=== PATIENT | female | born 1935 | race Caucasian/White ===

== ENCOUNTER 2019-12-27 02:17 | Outpatient (CLI) | payer OTHER, SELFPAY ==
[2019-12-27 18:39] LABS: SARS-CoV-2 RNA PCR Negative
== END 2019-12-27 02:18 | disposition home or self-care (01) ==
LOC: ANHCOVIDDT 02:17
PROVIDERS: PCP Internal Medicine; Visit Provider Specialist
DX: Z01.812 Encounter for preprocedural laboratory examination (principal); Z20.828 Contact with and (suspected) exposure to other viral communicable diseases
CPT/HCPCS: 87635; C9803; U0003

== ENCOUNTER 2019-12-29 05:21 | Day surgery (SDC) | payer OTHER, SELFPAY ==
[2019-12-28 13:27] VITALS: BMI 31.1
[2019-12-29] VITALS (29 sets, daily range): BP systolic 96–183; BP diastolic 51–92; PULSE 65–83; RESP 11–20; TEMP 36.1–36.3; O2SAT 93–100; BMI 31.6
[2019-12-29 08:23] LABS: Basophils Absolute Auto 0.1 K/mm3 (0.0-0.1); Basophils Percent Auto 0.8 % (0.2-1.2); Eosinophils Absolute Auto 0.1 K/mm3 (0-0.3); Eosinophils Percent Auto 1.6 % (0-4.4); Hemoglobin 15.1 g/dL (12.0-15.0); Immature Granulocyte Absolute 0.01 K/mm3 (0.00-0.031); Immature Granulocyte Percent A 0.1 % (0-0.5); Lymphocytes Absolute Auto 2.39 K/mm3 (0.9-3.2); Mean Corpuscular HGB Conc 33.6 g/dl (32-36); Mean Corpuscular Hemoglobin 30.9 pg (26-34); Mean Corpuscular Volume 92.2 fl (80-100); Mean Platelet Volume 11.8 fl (7.4-10.4); Monocytes Absolute Auto 0.5 K/mm3 (0.1-0.6); Monocytes Percent Auto 6.2 % (2.6-8.5); Neutrophils Absolute Auto 4.4 K/mm3 (1.3-6.7); Neutrophils Percent Auto 59.3 % (45.5-73.1); Platelet Count Result 264 k/mm3 (150-375); Red Blood Count 4.88 M/mm3 (4.2-5.4); Red Cell Distribution Width 13.7 % (11.5-14.5); White Blood Count 7.5 K/mm3 (4.5-10.0)
[2019-12-29 08:32] LABS: INR 0.9; Prothrombin Time 12.3 Seconds (11.1-14.7)
[2019-12-29 08:34] LABS: Anion Gap 5 mmol/L (8-16); Blood Urea Nitrogen 16 mg/dL (7-17); Calcium 9.5 mg/dL (8.4-10.2); Carbon Dioxide 29 mmol/L (22-30); Chloride 106 mmol/L (98-107); Estimated CRCL calculation 47 ml/min; Estimated Glomerular Filt Rate > 60; Glucose 95 mg/dL (65-105); Potassium 3.9 mmol/L (3.4-5.0); Sodium 140 mmol/L (137-145)
--- NOTE | 2019-12-29 09:46 | WPDMODSED ---
Moderate Sedation Note-Pt Data Patient Data Diagnosis: Symptoms of atypical chest pain Coronary disease with previous stenting of the LAD in 2014 Present Complaint: No complaints this morning patient here for outpatient angiography Procedure to be performed/Plan: Left heart catheterization Allergies Allergy/AdvReac Type Severity Reaction Status Date / Time No Known Allergies Allergy Verified 12/22/19 14:14 Home Medications Medication Instructions Recorded Confirmed Type clopidogrel 75 mg tablet 75 mg PO DAILY 02/21/19 12/28/19 History denosumab 60 mg/mL subcutaneous 60 mg SUB-Q [id number] 02/21/19 12/28/19 History syringe cholecalciferol (vitamin D3) 2,000 unit PO DAILY 03/02/19 12/28/19 History [Vitamin D3] pantoprazole 40 mg tablet,delayed 40 mg PO DAILY #90 tablet 08/29/19 12/28/19 Rx release lisinopril 40 mg PO DAILY 12/28/19 12/28/19 History metoprolol succinate 25 mg PO DAILY 12/28/19 12/28/19 History Current Medications: Active Medications Sodium Chloride (Normal Saline Iv) 500 mls @ 100 mls/hr IV CONT .Q5H NADIR Sedation/Anesthesia: No previous sedation/anesthesia problems (including family history). [facility] Past Medical History Medical History (Updated 12/22/19 @ 14:53 by ANGELICA Bai) Arthritis CAD (coronary artery disease) Cancer of kidney Carpal tunnel syndrome Cataracts, bilateral Diverticulitis Diverticulosis Gastroesophageal reflux disease Heart attack Hiatal hernia History of blood transfusion HTN (hypertension) Hyperlipidemia Post-menopausal Renal cell carcinoma Screening for breast cancer Seborrheic keratoses Shingles Umbilical hernia Surgical History Surgical History History of bladder surgery History of cardiac catheterization History of carpal tunnel release History of cataract removal with insertion of prosthetic lens History of cholecystectomy History of colonoscopy History of coronary artery stent placement History of hysterectomy History of umbilical hernia repair Status post dilation and curettage Social History Social History Smoking status: Never smoker Second hand tobacco smoke exposure: No Alcohol intake: current Drinks per week: 1 Substance use: never Living arrangements: with family Gender identity (if verbalized by the patient): Female Spiritual care concerns: No Agree to blood products: No Mod Sed Physical Exam Physical Exam Pre Procedural Exam: Normal: Appearance, Neck, Throat, Airway, Lungs, Heart Size, Heart Rate, Heart Rhythm, Neuro Exam and Extremities Hours since solid foods: 12 Hours since liquid intake: 12 Internal Medicine - PN: Obj Da Vital Signs Vital Signs: Vital Signs - 24 hr 12/29/19 08:20 Temperature 36.2 C L Pulse Rate 68 Respiratory Rate 13 Blood Pressure 183/92 H Pulse Oximetry 100 Meds/Results Medications: Active Medications Generic Name Dose Route Start Last Admin Trade Name Gildardoq PRN Reason Stop Dose Admin Sodium Chloride 500 mls @ 100 mls/hr 12/29/19 05:55 Normal Saline Iv IV CONT .Q5H NADIR Labs CBC & Chem 7: 12/29/19 08:04 12/29/19 08:04 Labs: Laboratory Results - last 24 hr 12/29/19 12/29/19 12/29/19 08:04 08:04 08:04 WBC 7.5 RBC 4.88 Hgb 15.1 H Hct 45.0 MCV 92.2 MCH 30.9 MCHC 33.6 RDW 13.7 Plt Count 264 MPV 11.8 H Immature Gran % (Auto) 0.1 Neut % (Auto) 59.3 Lymph % (Auto) 32.0 [place] % (Auto) 6.2 Eos % (Auto) 1.6 Baso % (Auto) 0.8 Lymph # (Auto) 2.39 [place] # (Auto) 0.5 Eos # (Auto) 0.1 Baso # (Auto) 0.1 Abs Immat Gran (auto) 0.01 Absolute Neuts (auto) 4.4 Absolute Nucleated RBC 0.0 Nucleated RBC % 0.0 PT 12.3 INR 0.9 Sodium 140 Potassium 3.9 Chloride 106 Carbon Dioxide 29 Anion Gap 5 L BUN 16 Creatinin
--- NOTE | 2019-12-29 10:38 | WPDCARDPROC ---
Cardiac Cath Procedure Note Date of procedure:: 12/29/19 Performing physician:: Dino Suggs MD Indication:: chest pain syndrome with both atypical and typical features of angina history of coronary artery disease with previous LAD stent 5 years ago abnormal nuclear stress test Brief clinical history:: 84-year-old patient with a known history of coronary disease who underwent stenting of the LAD in 2015. She has of variety of symptoms which are mostly atypical of myocardial ischemia she does some exertional chest pain component as well. A nuclear stress test was done as an outpatient which was modestly abnormal suggesting ischemia in the base of the anterior wall. Follow-up angiogram was recommended for this reason Procedure Procedure performed:: left heart catheterization with left ventriculography and coronary angiography percutaneous revascularization of the circumflex Sedation/Medication given:: fentanyl 50 mg Versed 2 mg case start time 9:57 a.m. case end time 10:32 a.m. sedation provided by Kerry Leo RN, trained observer Access site:: right femoral Estimated blood loss:: 15-20 cc Procedure note:: patient was brought to the cardiac catheterization lab in the postabsorptive state the right femoral triangle was prepared and draped in the usual sterile fashion. Anesthesia was provided with 1% lidocaine infiltrated locally. Using the modified Seldinger technique the femoral artery was punctured and a 5 Palestinian vascular sheath was placed. After this left heart catheterization was carried out a 5 Palestinian angled pigtail catheter was used to document left-sided hemodynamics and to injected LV g in the are AO projection. After this I used a 5 Palestinian FL4 catheter to engage inject the left coronary artery and then a 5 Palestinian JR4 catheter to engage inject the right coronary artery. Cineangiograms were then reviewed and after this PCI of the mid circumflex was recommended and carried out as detailed below. prior to PCI the 5 Palestinian sheath was changed over a guidewire for a 6 Palestinian sheath. She was systemically anticoagulated with Angiomax for the intervention she was taking clopidogrel chronically but not aspirin she received 325 mg of aspirin orally prior to PCI. Following PCI the sheath was sutured into position he was taken to the holding area for recovery and sheath removal. The patient was significantly hypertensive during the case cardiac catheterization procedure she received intravenous labetalol 20 mg x 2 doses as well as 10 mg of hydralazine for treatment of this. He left the catheterization lab in stable condition with no evidence of a groin hematoma. Findings:: Hemodynamics: Central aortic pressure is 208 over 84 left ventricle 208/1 end-diastolic pressure 16. There was significant gradient on pullback across the aortic valve. Left ventricle the LV is of normal size all segments contract appropriately the global ejection fraction of visually estimated to be 60% the left main coronary artery is widely patent the left anterior descending is a moderate caliber artery extending down to the apex. There is visible stent material in the proximal segment of the LAD which remains nicely patent. There is modest atherosclerotic irregularities in the LAD proximal to this representing no more than about 20% stenosis. The circumflex is a [id number] caliber artery giving rise to 2 significant marginal branches in the mid circumflex between the 2 branches there is a 80% disease there is VERONIKA 3 flow in the vessel. The right coronary artery is moderate caliber and dominant to the posterior circulation the right coronary artery is angiographically free of significant disease the left coronary artery was engaged with a 6 Palestinian CLS 3.5 guiding catheter 0.014 BMW coronary wire was used to wire the circumflex. The lesion was pre-dilated with a 2.5 x 20 mm emerge PTCA balloon and then stented using a 3.0 x 18 mm Ors
--- NOTE | 2019-12-29 11:10 | ECG_ITS ---
Measurements Intervals [place] Rate: 75 P: 40 WA: 258 QRS: -13 QRSD: 92 T: 20 QT: 404 QTc: 453 Interpretive Statements SINUS RHYTHM WITH FIRST DEGREE AV BLOCK INCOMPLETE RIGHT BUNDLE BRANCH BLOCK BASELINE ARTIFACT- I, II, AVR, AVL, AVF ABNORMAL ECG Electronically Signed On 12-29-2019 20:07:06 CDT by Farhan Laureano D.O.
[2019-12-29] MEDS: MORPHINE SULFATE (*CRX) 2 MG/ML INJ IV PUSH (11:32)
--- NOTE | 2019-12-29 11:39 | SUR.PHASEII ---
1115-pt endorses 10/12 left chest pain. MD informed and orders received and carried out. Pt's pain has not yet abated. Will continue to monitor.
--- NOTE | 2019-12-29 12:13 | SUR.PHASEII ---
1212-MD informed and pt's continuing pain. Orders received and carried out. Will continue to monitor.
[2019-12-29] MEDS: NITROGLYCERIN OINTMENT 1 INCH DOSE TRANSDERM (12:22)
--- NOTE | 2019-12-29 16:15 | ADMGEN ---
This patient, Debbie Miller, was admitted to [facility]. Patient/family oriented to hospital policies and general routines including ID bracelet, bed and alarms, visiting hours, pain management, procedures, bathroom and other care routines, personal items, smoking policy, room service/diet, and visiting hours. Valuables list has been completed. Information on how to activate the Rapid Response Team has been discussed. Patient/Family are encouraged to report perceived risks to care and to ask questions if they do not understand what they are told or what they should do.
--- NOTE | 2019-12-29 17:45 | PC.NURSE ---
This patient, Debbie Miller, was received from [[facility]] on 12/29/19 at 1745. REPORT RECEIVED FROM ISA BLANCO. Personal belongings list checked and signed. Patient/family oriented to unit policies and routines
[2019-12-29] MEDS: SODIUM CHLORIDE 0.9% IV 1,000 ML 125 ML IV CONT (19:34)
[2019-12-30] VITALS (10 sets, daily range): BP systolic 124–130; BP diastolic 61–67; PULSE 57–81; RESP 16; TEMP 35.9–36.4; O2SAT 96–97
[2019-12-30] MEDS: ACETAMINOPHEN 500 MG TABLET 1000 MG PO (03:25)
--- NOTE | 2019-12-30 05:11 | ECG_ITS ---
Measurements Intervals [place] Rate: 63 P: -21 TX: 225 QRS: -26 QRSD: 93 T: -29 QT: 397 QTc: 408 Interpretive Statements SINUS RHYTHM WITH FIRST DEGREE AV BLOCK INCOMPLETE RIGHT BUNDLE BRANCH BLOCK DELAYED PRECORDIAL R/S TRANSITION BORDERLINE T WAVE ABNORMALITY- INFERIOR LEADS BASELINE ARTIFACT- V3 ABNORMAL ECG Electronically Signed On 12-30-2019 8:34:08 CDT by Farhan Laureano D.O.
[2019-12-30] MEDS: PANTOPRAZOLE 40 MG TABLET PO (08:59)
[2019-12-30] MEDS: CLOPIDOGREL BISULFATE 75 MG TABLET PO (08:59)
[2019-12-30] MEDS: lisinopriL 20 MG TABLET 40 MG PO (08:59)
[2019-12-30] MEDS: METOPROLOL SUCCINATE EXT REL 25 MG TABCR PO (08:59)
[2019-12-30] MEDS: CHOLECALCIFEROL 1,000 UNITS TABLET 2000 UNITS PO (09:02)
[2019-12-30] MEDS: ASPIRIN 81 MG CHEWABLE TABLET PO (09:02)
--- NOTE | 2019-12-30 10:59 | PM.DS ---
DS: Admitting Diagnosis Admitting Diagnosis Admitting Diagnosis: Chest pain, Abnormal Stress Test DS: Discharge Diagnosis Discharge Diagnosis (1) Coronary artery disease involving [place] coronary artery of [place] heart: Qualifiers: Associated angina: angina presence unspecified Qualified Code(s): I25.10 - Atherosclerotic heart disease of [place] coronary artery without angina pectoris Code(s): I25.10 - Atherosclerotic heart disease of [place] coronary artery without angina pectoris Status: Acute DS: Summary Time Spent with Patient Time attestation: Patient has been complaining of exertional chest discomfort and tightness and radiates ot her jaw and had stress test that was abnormal and referred for [facility] that showed severe disease in LCX and had PCI with BRETIN to LCX yesterday Osario 3.0 * 18 mm, she had patent stents in LAD. Cath done though right GENERAL NEUROLOGIST. overnight mild jaw pain with no chest pain associated with headache that resolved spontaneously,. ambulant with no pain in chest or groin, asymptomatic and feels good. Total time spent providing and/or coordinating discharge services: 35 min Exam Const: General: comfortable and no acute distress Limitations: no limitations Neck: Neck: supple and no JVD Carotids: no bruits Resp: Effort & Inspection: normal respiratory effort Auscultation: clear to auscultation bilaterally Cardio: Rate: regular rate and tachycardic Rhythm: regular rhythm Heart sounds: no murmurs Extrem: General: normal to inspection and no edema Other: Access site with no hematoma Psych: Mental Status: mental status grossly normal DS: Data Data Completed and Pending Completed studies during hospitalization: [facility] that showed 80% stenosis in LCX s/p PCi with BERTIN Labs on day of discharge: Normal kidney function and CBC Discharge Plan Discharge Patient Disposition: Home, Self-Care Discharge Instructions: ACTIVITY: No driving until Wednesday, January 01, 2020. No lifting, pushing or pulling more than 10 pounds for 1 week. No strenuous exercise or activity for 1 week. May shower but no tub baths or swimming pool for 1 week. Avoid commercial hot tubs. They are too hot. DO NOT STOP YOUR MEDICATIONS! ONLY YOUR GAS BRAZER CAN STOP THE FOLLOWING MEDICATIONS: Aspirin Clopidogrel Rosuvastatin Lisinopril Metoprolol succinate PLEASE CALL THE OFFICE IF THESE MEDICATIONS NEED TO BE STOPPED Keep your stent card in your wallet at all times Read food labels for high levels of sodium, no added salt, avoid fried foods, eat more fruits and vegetables. Stay hydrated. If you have chest pain unrelieved by rest call 911 immediately FOLLOW-UP: Follow up with [facility] ([facility]) office at [facility] [address] with Magali Liriano NP on January 12, 2020 at 1:00 p.m. Please arrive by 12:45 p.m. for your appointment. Bring photo ID, insurance card(s) and current medication list. WOUND CARE: May remove Band aid tomorrow and leave site open to air. Observe for redness, swelling, drainage or bleeding. Wash gently and pat dry when showering. Patient Instructions: Metoprolol (By mouth), Lisinopril (By mouth), Aspirin (By mouth), Clopidogrel (By mouth), Pantoprazole (By mouth), Coronary Artery Disease (DC), Coronary Angioplasty (DC) Stand Alone Forms: General Discharge Instructions Discharge Medications: New aspirin [Children's Aspirin] 81 mg Tablet,Chewable 81 mg PO DAILY@0800 Qty: 30 RF: 11 rosuvastatin 5 mg tablet 5 mg PO DAILY Qty: 30 RF: 3 Continued clopidogrel 75 mg tablet 75 mg PO DAILY RF: 0 Prolia 60 mg/mL syringe 60 mg SUB-Q [id number] RF: 0 pantoprazole 40 mg tablet,delayed release (DR/EC) 40 mg PO DAILY Qty: 90 RF: 1 cholecalciferol (vitamin D3) [Vitamin D3] 2,000 unit Tablet 2,000 unit PO DAILY RF: 0 metoprolol succinate 25 mg
== END 2019-12-30 12:40 | disposition home or self-care (01) ==
LOC: ANHCATHLAB 07:45 → ANHCPC 16:14 → ANHIMU 02-26 14:26
PROVIDERS: PCP Internal Medicine; Visit Provider Specialist
PROC: 4A023N7 Measurement of Cardiac Sampling and Pressure, Left Heart, Percutaneous Approach (ICD-10-PCS; CPT 93452; principal; 2019-12-29 09:00)
PROC: (CPT 92928; 2019-12-29 09:00)
DX: I25.10 Atherosclerotic heart disease of native coronary artery without angina pectoris (principal); R07.9 Chest pain, unspecified; R94.39 Abnormal result of other cardiovascular function study; Z95.5 Presence of coronary angioplasty implant and graft; I10 Essential (primary) hypertension; Z79.02 Long term (current) use of antithrombotics/antiplatelets; K21.9 Gastro-esophageal reflux disease without esophagitis; I25.2 Old myocardial infarction; E78.5 Hyperlipidemia, unspecified; Z85.528 Personal history of other malignant neoplasm of kidney
CPT/HCPCS: 36415; 80048; 85025; 85610; 93005; 93458; A9270; C1725; C1769; C1874; C1887; C1894; C9600; J0360; J0461; J0583; J1644; J2250; J2270; J3010; J7030; J7040

== ENCOUNTER 2020-02-01 08:12 | Outpatient (CLI) | payer OTHER, SELFPAY ==
--- NOTE | ~2020-02-01 | MM_ITS ---
EXAMINATION: MM screening marky BI w steven HISTORY: Screening mammogram TECHNIQUE: Craniocaudal and mediolateral oblique 3-D tomosynthesis images were obtained and synthetic 2-D images were generated. CAD analysis was submitted and interpreted. COMPARISON: 07/11/2018, 07/01/2016, 01/11/2013 BREAST PARENCHYMAL COMPOSITION: There are scattered areas of fibroglandular density. FINDINGS: Scattered benign-appearing calcifications are present. There is no evidence of suspicious m ass, calcification, or architectural distortion to suggest malignancy in either breast. There has bee n no suspicious interval change. IMPRESSION: 1. No mammographic evidence of malignancy. 2. Recommend routine screening mammography while the patient remains in good health. BI-RADS Category 2: Benign finding(s). Reviewed, dictated and finalized at location A. IMPRESSION: 1. No mammographic evidence of malignancy. 2. Recommend routine screening mammography while the patient remains in good he alth. BI-RADS Category 2: Benign finding(s).
== END 2020-02-01 08:13 | disposition home or self-care (01) ==
PROVIDERS: PCP Internal Medicine; Visit Provider Nurse Practitioner
DX: Z12.31 Encounter for screening mammogram for malignant neoplasm of breast (principal)
CPT/HCPCS: 77063; 77067

== ENCOUNTER 2020-03-08 07:05 | Outpatient (NON) | payer OTHER, SELFPAY ==
[2020-03-08 19:11] LABS: SARS-CoV-2 RNA PCR Positive
== END 2020-03-08 07:06 ==
LOC: ANHCOVIDDT 07:14
PROVIDERS: PCP Internal Medicine; Visit Provider Nurse Practitioner
DX: U07.1 COVID-19 (principal)
CPT/HCPCS: 87635; C9803; U0003

== ENCOUNTER 2020-09-23 20:05 | Emergency (ER) | payer OTHER, SELFPAY ==
--- NOTE | ~2020-09-23 | XR_ITS ---
EXAMINATION: XR knee RT min 4V DATE: 09/23/2020 21:18 INDICATION: Right knee pain. TECHNIQUE: 4 views of right knee were obtained. COMPARISON: Right knee radiographs 12/17/2016 FINDINGS: Bone alignment is normal. No fracture. There is mild tricompartmental osteoarthritis. There is a small knee joint effusion. IMPRESSION: 1. Mild right knee osteoarthritis. 2. Small right knee joint effusion. Reviewed, dictated and finalized at location A.
--- NOTE | ~2020-09-23 | XR_ITS ---
EXAMINATION: XR knee LT min 4V DATE: 09/23/2020 21:17 INDICATION: Left knee pain. TECHNIQUE: 4 views of left knee were obtained. COMPARISON: None. FINDINGS: Bone alignment is normal. No fracture. There is moderate osteoarthritis of patellofemoral c ompartment and mild osteoarthritis of medial and lateral compartments. There is a small knee joint ef fusion. IMPRESSION: 1. Moderate left knee osteoarthritis. 2. Small left knee joint effusion. Reviewed, dictated and finalized at location A.
[2020-09-23 20:19] VITALS: BP 184/69; PULSE 64; RESP 18; TEMP 36.7; O2SAT 100
--- NOTE | 2020-09-23 22:03 | ED.LOWEXIN ---
HPI - Extremity Injury (Lower) General Chief Complaint: Extremity Injury, Lower Stated Complaint: preet knee pain, L>R Time Seen by Provider: 09/23/20 21:03 Source: patient Mode of arrival: ambulatory Limitations: no limitations History of Present Illness HPI Narrative: This is a 85-year-old female that presents to the emergency department for left knee pain x2 days. No certain injury or trauma. Pain is worse with weightbearing and relieved with rest. Reports decreased range of motion due to pain. Also reports some pain in the right knee. Denies fever, erythema, edema, or numbness. Related Data Home Medications Medication Instructions Recorded Confirmed clopidogrel 75 mg tablet 75 mg PO DAILY 02/21/19 04/24/20 cholecalciferol (vitamin D3) 2,000 unit PO DAILY 03/02/19 04/24/20 [Vitamin D3] metoprolol succinate 25 mg PO DAILY 12/28/19 04/24/20 famotidine 20 mg tablet 20 mg PO DAILY 02/13/20 04/24/20 Allergies Allergy/AdvReac Type Severity Reaction Status Date / Time Anesthesia AdvReac Mild Nausea Uncoded 04/24/20 10:04 Review of Systems Review of Systems: Narrative: CONSTITUTIONAL: Denies fever SKIN: Denies rash MUSCULOSKELETAL: Reports joint pain, and myalgia. NEUROLOGIC: Denies numbness, or weakness. All systems reviewed & are unremarkable except as noted in HPI and below PMFSH Past Medical History Medical History Arthritis CAD (coronary artery disease) Cancer of kidney Carpal tunnel syndrome Cataracts, bilateral Diverticulitis Diverticulosis Gastroesophageal reflux disease Heart attack Hiatal hernia History of blood transfusion HTN (hypertension) Hyperlipidemia Pharyngitis Post-menopausal Postmenopausal Renal cell carcinoma Screening for breast cancer Seborrheic keratoses Shingles Umbilical hernia Surgical History Surgical History History of bladder surgery History of cardiac catheterization History of carpal tunnel release History of cataract removal with insertion of prosthetic lens History of cholecystectomy History of colonoscopy History of coronary artery stent placement History of hysterectomy History of umbilical hernia repair Status post dilation and curettage Family History Family History Sibling Patient's brother is in good health Cerebrovascular accident Father Family history of cardiovascular disease Cerebrovascular accident Mother Congestive heart failure Social History Social History Smoking status: Never smoker Second hand tobacco smoke exposure: No Alcohol intake: current Drinks per week: 1 Substance use: never Substance use type: does not use Gender identity (if verbalized by the patient): Female Spiritual care concerns: No Agree to blood products: No Exam Narrative: Exam Narrative: GENERAL: Well-appearing, well-nourished, and in no acute distress. HEAD: Normocephalic, atraumatic. EYES: EOMI. EXTREMITIES: Normal range of motion in the right knee. Decreased active ROM in the left knee due to pain. No edema, erythema or obvious deformity. Normal DP pulses. Normal sensation SKIN: Warm, dry, no rash. NEURO: No focal deficits. Alert and oriented x3. PSYCH: Normal mood and affect Course Vital Signs Vital signs: Vital Signs Temperature 98.1 F 09/23/20 20:19 Pulse Rate 64 09/23/20 20:19 Respiratory Rate 18 09/23/20 20:19 Blood Pressure 184/69 H 09/23/20 20:19 Pulse Oximetry 100 09/23/20 20:19 Temperature 98.1 F 09/23/20 20:19 Pulse Rate 64 09/23/20 20:19 Respiratory Rate 18 09/23/20 20:19 Blood Pressure 184/69 H 09/23/20 20:19 Pulse Oximetry 100 09/23/20 20:19 MDM - Extremity Injury (Lower) MDM Narrative Medical decision making narrative: Patient presents the emergency department f
[2020-09-23 22:42] VITALS: BP 174/72; PULSE 73; RESP 20; O2SAT 97
== END 2020-09-23 22:45 | disposition home or self-care (01) ==
PROVIDERS: Emergency Provider Emergency Medicine; PCP Internal Medicine
DX: M17.0 Bilateral primary osteoarthritis of knee (principal); I25.10 Atherosclerotic heart disease of native coronary artery without angina pectoris; Z85.528 Personal history of other malignant neoplasm of kidney; K21.9 Gastro-esophageal reflux disease without esophagitis; I25.2 Old myocardial infarction; I10 Essential (primary) hypertension; E78.5 Hyperlipidemia, unspecified; Z95.5 Presence of coronary angioplasty implant and graft; Z98.49 Cataract extraction status, unspecified eye; Z96.1 Presence of intraocular lens
CPT/HCPCS: 73564; 99284

== ENCOUNTER → 2021-04-16 10:39 | Outpatient (CLI) | payer OTHER, SELFPAY ==
--- NOTE | ~2021-04-16 | XR_ITS ---
EXAMINATION: XR hip LT 2V w AP pelvis EXAM DATE: 04/16/2021 11:10 INDICATION: R10.32 - Left lower quadrant pain . TECHNIQUE: Left hip frontal, 'frog leg' projections for interpretation. Frontal projection pelvis. There is no prior study for comparison. FINDINGS: Smooth left hip femoral head contour, no radiographic evidence of avascular necrosis. Ther e is mild to moderate symmetric bilateral hip primary osteoarthritis. Sacrum, sacroiliac joints, sacr al arcuate lines are intact. There are no acute fractures identified. IMPRESSION: Mild to moderate bilateral hip osteoarthritis. Reviewed, dictated and finalized at location A. N CLERK
== END ==
PROVIDERS: PCP Internal Medicine; Visit Provider Nurse Practitioner
DX: R10.32 Left lower quadrant pain (principal); M16.0 Bilateral primary osteoarthritis of hip
CPT/HCPCS: 73502

== ENCOUNTER 2021-06-18 00:23 | Day surgery (SDC) | payer OTHER, SELFPAY ==
[2021-06-12 15:06] VITALS: BMI 31.2
--- NOTE | 2021-06-12 15:27 | PC.NURSE ---
Report to the Outpatient Waiting Room, entrance under the green pavilion located off [facility], at time ___0600____ on date __06/18/21 . OR Time: __729__. - You and your visitor will be asked a series of questions to screen for COVID 19 for your protection. - A mask is required within the hospital. Preoperative COVID Testing Requirements: No COVID Test needed if: (proof is required; if not received patient will have Rapid Test prior to entry) - Patient has received COVID Vaccine at least 14 days prior to procedure date or - Patient has positive COVID test result within last 90 days of surgery date. COVID Test needed if above criteria is not met If not COVID vaccinated a COVID test must be conducted within 72 hours of surgery and patient is asked to isolate self from time of testing until procedure. You will go to the [facility] for your COVID testing. The [facility] is located at the corner of [address] [facility]. You will only be called if COVID results are positive and your surgeon may reschedule your elective surgery date. Patients may have clear liquids (water, carbonated beverages, clear teas, apple juice) until 3 hours prior to surgery with a maximum of 20 ounces. - No food from midnight until time of surgery - Infants may have breast milk until 4 hours before surgery, infant formula 6 hours prior to surgery. - Children will be allowed to drink immediately following surgery. If applicable, please bring a bottle or sippy cup to assist with drinking. Juice, water, soda, and popsicles are readily available. For infants on formula, please bring formula the day of surgery. Pacifiers are allowed. Take the following medications with a SIP of water the morning of surgery: _METOPROLOL_ Medications to discontinue per ANESTHESIA - _ALL VITAMINS & SUPPLEMENTS, 3 DAYS PRIOR TO SURGERY, Date to take last dose 06/14/21_ Please no make-up, nail [place] islander, hairspray, perfume, deodorant, or body powder the day of surgery. No jewelry (including any body piercings) or valuables the day of surgery, leave them at home. Please take a shower or bath the night before, or the morning of, surgery with an antibacterial soap. Wear comfortable, loose fitting clothing. Children are encouraged to wear pajamas. - Jewelry must be removed prior to entering the operating room. Rings and piercings that are not removed may be cut off. - The hospital will not accept responsibility for valuables. - Please leave all valuables, including medications, at home the day of surgery. If you are going home after surgery, a licensed rolloff truck driver must drive you home. - NO public transportation without another adult. - We recommend that an adult stay with you for 24 hours following discharge. - We also recommend that you do not drive, make important decision, drink alcoholic beverages, or take any drugs that were not prescribed by your health care provider for at least 24 hours after your discharge time. For Pediatric surgeries, we recommend two adults accompany the child home (only one inside the building at this time). One visitor will be allowed to accompany the patient into the hospital. Patients visitor will be instructed to remain with patient at all times or leave the building. We will allow the visitor to come back to the postoperative area when patient is ready. Follow any additional instructions given to you from your surgeon. Telephone instructions given to __PT and asked if any additional questions and then verbalized understanding. Patient advised to call surgeon office or pre surgery nurse liaison [phone] if any additional questions.
--- NOTE | 2021-06-17 13:19 | WPDANESEPPF ---
Anes - Initial Pre Proc Eval Procedure: Operation Date: 06/18/21 07:30 Proposed Procedures p Bilateral Open Carpal Tunnel Release - Louis Pratt MD Date/Time: 06/17/21 13:19 Surgeon: Louis Pratt MD Pre Op Diagnosis: bilateral carpal tunnel syndrome Patient Data Age: 86 Gender: F Height: 1.55 m Weight: 75 kg Allergies Allergy/AdvReac Type Severity Reaction Status Date / Time No Known Allergies Allergy Verified 06/12/21 15:02 Home Medications Medication Instructions Recorded Confirmed Type clopidogrel 75 mg tablet 75 mg PO DAILY 02/21/19 06/12/21 History cholecalciferol (vitamin D3) 2,000 unit PO DAILY 03/02/19 06/12/21 History [Vitamin D3] aspirin [Children's Aspirin] 81 mg PO DAILY@0800 #30 tablet 12/29/19 06/12/21 Rx rosuvastatin 5 mg tablet 5 mg PO EVERY OTHER DAY tablet 10/14/20 06/12/21 History metoprolol succinate 25 mg 37.5 mg PO EVERY OTHER DAY tablet 10/30/20 06/12/21 History tablet,extended release 24 hr famotidine 20 mg tablet 20 mg PO .PRN #90 tablet 03/31/21 06/12/21 Rx lisinopril 40 mg tablet 40 mg PO DAILY #90 tablet 04/23/21 06/12/21 Rx pantoprazole 40 mg tablet,delayed 40 mg PO DAILY #90 tablet 06/11/21 06/12/21 Rx release Patient hx anesthesia problems: none Family hx anesthesia problems: none Results Review: All pre-operative results and documents have been reviewed as part of the pre-operative evaluation. [facility] Past Medical History Medical History Arthritis CAD (coronary artery disease) Cancer of kidney Carpal tunnel syndrome Cataracts, bilateral COVID-19 Diverticulitis Diverticulosis Gastroesophageal reflux disease Heart attack Hiatal hernia History of blood transfusion HTN (hypertension) Hyperlipidemia Pharyngitis Post-menopausal Postmenopausal Renal cell carcinoma Screening for breast cancer Seborrheic keratoses Shingles Umbilical hernia Surgical History Surgical History History of bladder surgery History of cardiac catheterization History of carpal tunnel release History of cataract removal with insertion of prosthetic lens History of cholecystectomy History of colonoscopy History of coronary artery stent placement History of hysterectomy History of umbilical hernia repair Status post dilation and curettage Family History Family History Sibling Patient's brother is in good health Cerebrovascular accident Father Family history of cardiovascular disease Cerebrovascular accident Mother Congestive heart failure Social History Social History Smoking status: Never smoker Second hand tobacco smoke exposure: No Alcohol intake: current Drinks per week: 1 Alcohol use details: social Substance use: never Substance use type: does not use Living arrangements: with family Gender identity (if verbalized by the patient): Female Spiritual care concerns: No Agree to blood products: No Anes - Eval Final PreProcedure Day of Procedure 06/17/21 13:19 Patient weight: obese Heart: regular rate and rhythm Lungs: clear to auscultation and normal air movement Airway: Mallampati scale class II Neurological: alert and oriented Last oral intake: >/= 8 hours ASA classification: III Emergent: no Anesthetic plan: proceed Anesthesia type and monitoring: general GIVS and standard monitoring Results Review: All pre-operative results and documents have been reviewed as part of the pre-operative evaluation. Informed Consent: The patient's anesthetic plan and its attendant risks and benefits were discussed with the patient/family/POA. Questions were solicited and answers provided to the satisfaction of the patient/family/POA.
[2021-06-18] MEDS: LACTATED RINGERS 1,000 ML 30 ML IV CONT (06:45)
[2021-06-18 07:00] VITALS: BP 163/75; PULSE 58; RESP 16; TEMP 36.4; O2SAT 99
--- NOTE | 2021-06-18 07:34 | WPDHPUPDATE1 ---
History and Physical Update Update Date/Time: 06/18/21 07:34 History and Physical has been reviewed, including an updated exam of the patient. There are NO changes in the patient's condition. Risks, benefits, and alternatives have been discussed and questions answered. Patient agrees to proceed with procedure.
[2021-06-18 08:19] VITALS: BP 139/79; PULSE 79; RESP 14; O2SAT 95
--- NOTE | 2021-06-18 08:38 | W.PM.PROC2 ---
Procedure Note - Detailed Date of Procedure 06/18/21 Pre-op Diagnosis bilateral carpal tunnel syndrome Post-op Diagnosis Same Procedure Performed Bilateral open carpal tunnel release Surgeon Louis Pratt MD Anesthesia MAC Description of Procedure The sites overlying the carpal tunnel were marked on each hand in the holding area. Patient was taken to the operating room and placed supine on the operating table. A time-out was held and confirmed. The patient was given IV sedation. The 2 hands were prepped and draped in usual fashion over separate hand tables. Both sites were marked again for surgical access and the sites infiltrated with 1% lidocaine with epinephrine. This was done on the right hand 1st to allow dwell time. We are hoping not to use a tourniquet due to its placement in the forearm. On the left the tourniquet was inflated to 250 mmHg and the incision was made as marked and dissection was carried bluntly through the subcutaneous tissue to the palmar aponeurosis. This and the carpal retinacular were and sized with a 15. Blade. Under 3 point retraction the ligament was visualized and divided throughout its length. There was no unusual anatomy noted. The skin was closed with interrupted 5 0 nylon suture. Tourniquet was released and the usual bandage applied. Our attention was turned to the right side. The right side tourniquet was not utilized, the incision was made and a single traversing vessel was cauterized. The palmar aponeurosis was incised with a 15 blade exposing the transverse retinaculum. This was also opened with a 15 blade. Under 3 point retraction the ligament was divided distally and proximally to completely release it. No unusual anatomy was noted. The skin was closed with interrupted 5 0 nylon suture. The usual bandage applied on that side. And she is discharged from the operating room stable condition she will have instructions in wound care and follow-up and a prescription for hydrocodone 5/325 7. Estimated Blood Loss 2 Tourniquet Time 3 Drains No Packing No Pathology None sent Complications No immediate complications Condition Stable Disposition Same day
[2021-06-18 08:49] VITALS: BP 194/84; PULSE 68; RESP 14
[2021-06-18 09:19] VITALS: BP 189/87; PULSE 65; RESP 14
[2021-06-18 09:49] VITALS: BP 177/81; PULSE 62; RESP 14
== END 2021-06-18 10:00 | disposition home or self-care (01) ==
PROVIDERS: PCP Internal Medicine; Visit Provider Plastic Surgery
PROC: (CPT 64721; principal; 2021-06-18 07:30)
DX: G56.03 Carpal tunnel syndrome, bilateral upper limbs (principal); I25.10 Atherosclerotic heart disease of native coronary artery without angina pectoris; I10 Essential (primary) hypertension; E78.5 Hyperlipidemia, unspecified; Z85.528 Personal history of other malignant neoplasm of kidney; K21.9 Gastro-esophageal reflux disease without esophagitis; I25.2 Old myocardial infarction; Z79.02 Long term (current) use of antithrombotics/antiplatelets; Z79.82 Long term (current) use of aspirin; E66.9 Obesity, unspecified; Z68.32 Body mass index [BMI] 32.0-32.9, adult
CPT/HCPCS: 64721; A9270; J2704; J3010; J7120

== ENCOUNTER 2021-09-25 08:26 | Observation (INO) | payer OTHER, SELFPAY ==
[2021-09-25] VITALS (32 sets, daily range): BP systolic 123–188; BP diastolic 53–96; PULSE 52–79; RESP 11–20; TEMP 36.1–36.6; O2SAT 95–100
--- NOTE | ~2021-09-25 | MR_ITS ---
EXAMINATION: MR brain/brain stem wo con DATE: 09/25/2021 17:43 INDICATION: Vertigo. TECHNIQUE: Magnetic resonance imaging (MRI) of the brain and brainstem was performed without intraven ous contrast. COMPARISON: Head CT 09/25/2021 FINDINGS: There are scattered areas of nonspecific increased T2-weighted signal intensity in the cere bral white matter, which is within normal limits for the patient's age. There is no intracranial hemo rrhage, acute infarction, or abnormal intracranial mass lesion. The ventricles are normal in size. Th e paranasal sinuses are clear. There are likely changes of ocular lens replacement surgeries. There i s a trace left mastoid effusion. IMPRESSION: 1. Normal aging brain. Reviewed, dictated and finalized at location A. IMPRESSION: 1. Normal aging brain.
--- NOTE | ~2021-09-25 | XR_ITS ---
EXAMINATION: XR chest 2V DATE: 09/25/2021 09:27 INDICATION: Dizziness TECHNIQUE: PA and lateral views of the chest were obtained. COMPARISON: Chest radiograph dated 03/06/2019 and 03/02/1990 FINDINGS: The lungs are clear with no focal airspace opacities, pulmonary edema, pleural effusion or pneumothor ax. The cardiomediastinal silhouette is normal. Reversed right total shoulder arthroplasty. Cholecyst ectomy clips in right upper quadrant. Chronic mild anterior wedging of a couple mid thoracic vertebra l bodies. IMPRESSION: 1. No acute cardiopulmonary disease. Reviewed, dictated and finalized at location B.
--- NOTE | ~2021-09-25 | CT_ITS ---
EXAMINATION: CTA brain carotid DATE: 09/25/2021 10:43 INDICATION: Dizziness. TECHNIQUE: Computed tomographic angiography (CTA) of the head was performed with 100 mL Omnipaque 300 intravenous contrast. CTA of the neck was performed with intravenous contrast. Automated exposure co ntrol and iterative reconstruction technique were employed. The dose-length product was 899.67 mGy-cm . Maximum intensity projection and volume rendered 3D-reconstructions were created by the [employer] t on a separate workstation. COMPARISON: Head CT 09/25/2021 FINDINGS: HEAD CTA: There are scattered areas of low attenuation in the cerebral white matter, which is within normal limits for the patient's age. There is no intracranial hemorrhage, acute infarction, or abnorm al intracranial mass lesion. The ventricles are normal in size. There is mild mucosal thickening in t he paranasal sinuses. The mastoid air cells are normal. There are likely changes of ocular lens repla cement surgeries. Right vertebral artery is dominant. There is no significant stenosis of basilar art mario. There is focal severe stenosis of right P2 posterior cerebral artery. The posterior communicatin g arteries are normal. There is no CSF stenosis of the intracranial internal carotid arteries or ante rior or middle cerebral arteries. Anterior communicating artery is normal. There is no aneurysm. NECK CTA: There is an 8 mm nodule in left thyroid lobe, likely not clinically significant. There are no pathologically enlarged lymph nodes. There is no significant stenosis of the vertebral arteries. T here is plaque in the proximal internal carotid arteries. There is 0% stenosis of the proximal right internal carotid artery relative to normal distal artery lumen diameter (NASCET criteria). There is 0 % stenosis of the proximal left internal carotid artery relative to normal distal artery lumen diamet er. There is severe cervical spondylosis. IMPRESSION: 1. 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 2. 0% stenosis of the proximal internal carotid arteries relative to normal distal artery lumen diame ters (NASCET criteria). Reviewed, dictated and finalized at location A. IMPRESSION: 1. 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 2. 0% stenosis of the proximal internal carotid arteries relative to normal dis bernabe artery lumen diameters (NASCET criteria).
--- NOTE | ~2021-09-25 | CT_ITS ---
EXAMINATION: CT brain wo con DATE: 09/25/2021 09:20 INDICATION: Dizziness. TECHNIQUE: Computed tomography (CT) of the head was performed without intravenous contrast. The mA wa s adjusted according to patient size. Iterative reconstruction technique was employed. The dose-lengt h product was 605.33 mGy-cm. COMPARISON: None FINDINGS: There are scattered areas of low attenuation in the cerebral white matter, which is within normal limits for the patient's age. There is no intracranial hemorrhage, acute infarction, or abnorm al intracranial mass lesion. The ventricles are normal in size. The paranasal sinuses are clear. Ther e are likely changes of ocular lens replacement surgeries. The mastoid air cells are normal. IMPRESSION: 1. Normal aging brain. Reviewed, dictated and finalized at location A. IMPRESSION: 1. Normal aging brain.
--- NOTE | 2021-09-25 08:47 | ECG_ITS ---
Measurements Intervals [place] Rate: 62 P: 22 ID: [id number] QRS: -21 QRSD: 100 T: 12 QT: 423 QTc: 431 Interpretive Statements SINUS RHYTHM BORDERLINE LEFT AXIS DEVIATION [QRS AXIS < -20] MODERATE VOLTAGE CRITERIA FOR LVH, CONSIDER NORMAL VARIANT [MEETS CRITERIA IN ONE OF: R(aVL), S(V1), R(V5), R(V5/V6)+S(V1)] COMPARED TO ECG 12/30/2019 07:15:50 NO SIGNIFICANT CHANGES Electronically Signed On 09-26-2021 16:16:22 CDT by Dino Suggs M.D.
--- NOTE | 2021-09-25 08:49 | ED.DIZZY ---
HPI - Dizziness General Chief Complaint: Dizziness Stated Complaint: dizziness, high bp Time Seen by Provider: 09/25/21 08:49 History of Present Illness HPI Narrative: Patient is an 86-year-old female with a history CAD, diverticular disease, hypertension, small bowel obstruction, presenting to the emergency department for evaluation of dizziness. Patient was gardening this morning when she stood up from a bent position, causing her to variance a room spinning sensation. Patient states that that persisted and caused her to feel very nauseated. Patient states the dizziness is exacerbated with movement and improved with rest. She denies vision changes, unilateral facial droop, difficulty with speech. She denies unilateral extremity weakness or numbness. Related Data Home Medications Medication Instructions Recorded Confirmed clopidogrel 75 mg tablet 75 mg PO DAILY 02/21/19 08/14/21 cholecalciferol (vitamin D3) 50 2,000 unit PO DAILY 03/02/19 08/14/21 mcg (2,000 unit) tablet (Vitamin D3) rosuvastatin 5 mg tablet 5 mg PO EVERY OTHER DAY 10/14/20 08/14/21 metoprolol succinate 25 mg 37.5 mg PO EVERY OTHER DAY 10/30/20 08/14/21 tablet,extended release 24 hr Allergies Allergy/AdvReac Type Severity Reaction Status Date / Time No Known Allergies Allergy Verified 08/14/21 11:43 Review of Systems Review of Systems: CONSTITUTIONAL: Denies fever, chills, or sweats. EYES: Denies visual changes, redness, or discharge. ENT: Denies rhinorrhea, congestion, sore throat, or otalgia. CARDIOVASCULAR: Denies chest pain, palpitations, or edema. RESPIRATORY: Denies cough or dyspnea. GASTROINTESTINAL: Denies abdominal pain, reports nausea GENITOURINARY: Denies dysuria or hematuria. SKIN: Denies rash or itching. MUSCULOSKELETAL: Denies back pain, joint pain, or myalgia. NEUROLOGIC: Denies headache, numbness, or weakness. Reports dizziness with movement. [facility] Past Medical History Medical History (Updated 09/25/21 @ 13:27 by Cristine Ponce MD) Arthritis Coronary artery disease COVID-19 Diverticulitis Diverticulosis Gastroesophageal reflux disease Hiatal hernia History of blood transfusion Hyperlipidemia Hypertension Post-menopausal Renal cell carcinoma Probable right renal cell carcinoma which has been followed conservatively since 11/2014. Seborrheic keratoses Shingles Umbilical hernia Surgical History Surgical History (Updated 09/25/21 @ 13:01 by Nury Carias PA-C) History of bladder surgery History of cardiac catheterization PTCA/stent to mid LAD in 11/2014. PTCA/stent to mid circumflex in 12/2019. History of carpal tunnel release History of cataract removal with insertion of prosthetic lens History of cholecystectomy History of colonoscopy with polypectomy History of coronary artery stent placement History of dilation and curettage History of exploratory laparotomy (03/2019) Adhesiolysis, release of small-bowel obstruction. History of hysterectomy History of reverse total replacement of right shoulder joint History of umbilical hernia repair Family History Family History Sibling Patient's brother is in good health Cerebrovascular accident Father Family history of cardiovascular disease Cerebrovascular accident Mother Congestive heart failure Social History Social History (Updated 09/25/21 @ 12:57 by Nury Carias PA-C) Social History: Surrogate decision maker: Code status: Full code. Smoking status: Never smoker Second hand tobacco smoke exposure: No Alcohol intake: current Drinks per week: 1 Alcohol use details: social Substance use: never Substance use type: does not use Occupation/Education: retired Spiritual care concerns: No Agree to blood products: No Exam Narrative: GENERAL: Awake, alert, conversant HEAD: Normocephalic, atraumatic. EYES: PERRLA and EOMI. ENT: Nares clear, no
[2021-09-25 09:16] LABS: Basophils Absolute Auto 0.1 K/mm3 (0.0-0.1); Basophils Percent Auto 0.9 % (0.2-1.2); Eosinophils Absolute Auto 0.1 K/mm3 (0-0.3); Hematocrit 43.6 % (37.0-47.0); Hemoglobin 14.1 g/dL (12.0-15.0); Immature Granulocyte Absolute 0.03 K/mm3 (0.00-0.031); Immature Granulocyte Percent A 0.5 % (0-0.5); Lymphocytes Absolute Auto 1.72 K/mm3 (0.9-3.2); Lymphocytes Percent Auto 26.1 % (18.3-44.2); Mean Corpuscular HGB Conc 32.3 g/dl (32-36); Mean Corpuscular Hemoglobin 30.5 pg (26-34); Mean Corpuscular Volume 94.2 fl (80-100); Mean Platelet Volume 11.6 fl (7.4-10.4); Monocytes Absolute Auto 0.5 K/mm3 (0.1-0.6); Monocytes Percent Auto 7.1 % (2.6-8.5); Neutrophils Absolute Auto 4.2 K/mm3 (1.3-6.7); Neutrophils Percent Auto 63.4 % (45.5-73.1); Platelet Count Result 252 k/mm3 (150-375); Red Blood Count 4.63 M/mm3 (4.2-5.4); Red Cell Distribution Width 14.6 % (11.5-14.5); White Blood Count 6.6 K/mm3 (4.5-10.0)
--- NOTE | 2021-09-25 09:18 | PC.NURSE ---
Patient to radiology
[2021-09-25 09:36] LABS: Alanine Aminotransferase 16 U/L (6-35); Albumin Level 4.5 g/dL (3.5-5.1); Alkaline Phosphatase 66 U/L (38-126); Anion Gap 6 mmol/L (8-16); Aspartate Amino Transferase 28 U/L (14-36); Bilirubin,Total 0.7 mg/dL (0.2-1.3); Blood Urea Nitrogen 15 mg/dL (7-17); Calcium 9.1 mg/dL (8.4-10.2); Carbon Dioxide 26 mmol/L (22-30); Chloride 109 mmol/L (98-107); Estimated Glomerular Filt Rate > 60; Glucose 103 mg/dL (65-110); Sodium 141 mmol/L (137-145)
[2021-09-25] MEDS: SODIUM CHLORIDE 0.9% IV 1,000 ML 999 ML IV CONT (10:00)
[2021-09-25] MEDS: ONDANSETRON INJ 4 MG/2 ML VIAL IV PUSH (10:03)
[2021-09-25] MEDS: MECLIZINE HCL 25 MG TABLET PO (10:03)
--- NOTE | 2021-09-25 10:48 | ECG_ITS ---
Measurements Intervals [place] Rate: 60 P: 26 MA: 212 QRS: -24 QRSD: 106 T: 3 QT: 411 QTc: 413 Interpretive Statements SINUS RHYTHM WITH FIRST DEGREE AV BLOCK BORDERLINE LEFT AXIS DEVIATION [QRS AXIS < -20] MODERATE VOLTAGE CRITERIA FOR LVH, CONSIDER NORMAL VARIANT [MEETS CRITERIA IN ONE OF: R(aVL), S(V1), R(V5), R(V5/V6)+S(V1)] COMPARED TO ECG 09/25/2021 08:54:28 NO SIGNIFICANT DIFFERENCE Electronically Signed On 09-26-2021 16:23:59 CDT by Dino Suggs M.D.
--- NOTE | 2021-09-25 10:58 | PC.NURSE ---
Patient states she is now having chest pain. EDP Kris notified, EKG completed.
[2021-09-25] MEDS: LORazepam INJ (*CRX) 2 MG/ML VIAL 0.5 MG IV PUSH (11:10)
[2021-09-25 12:02] LABS: Prothrombin Time 12.6 Seconds (11.1-14.7)
[2021-09-25 12:03] LABS: Partial Thromboplastin Time 27.8 SECONDS (22.3-36.8)
[2021-09-25 12:20] LABS: Troponin I < 0.012 ng/mL (0.000-0.034)
--- NOTE | 2021-09-25 12:50 | PM.IMHP ---
H&P: HPI History of Present Illness Date/Time: 09/25/21 12:50 <Nury Carias PA-C - Last Filed: 09/25/21 15:19> Chief Complaint: Dizzy. <Nury Carias PA-C - Last Filed: 09/25/21 15:19> Narrative: This is very pleasant 86-year-old female with coronary artery disease, hypertension, and hyperlipidemia who presented to the ED via private vehicle from home for evaluation of dizziness. She reports intermittent dizzy spells since last Wednesday which seemed to be precipitated by changes in position, for example looking upwards, turning over, or bending over. Symptoms reoccurred today while bending over, trimming nichole on her deck. It is difficult for her to explain the dizziness though it seems more vertiginous and she has intermittent nausea with the symptoms. The dizziness does improve with rest and lorazepam given in the emergency department. She thinks the meclizine actually made the dizziness worse. Additionally, her blood pressures have been noted to be high and with further questioning she admits that they have been running in the 160s to 170s at home over the last month or so, however after about 5 minutes arrest they do improved to the 140s systolic. NIH stroke scale on arrival to the ER was [address] showed no acute findings. A subsequent CTA of the head and neck showed a focal area of severe stenosis in the P2 cerebral artery. ED physician spoke with the neuro stroke team at [facility] and at this time they do not recommend tPA and it seems as though the CTA finding may be incidental as she has no other symptoms to suggest posterior CVA at this time. Currently she has minimal symptoms only if tilting her head back and looking upwards. She denies headache, auditory and visual changes, focal weakness, paresthesias, facial droop, dysarthria, and dysphagia. She also denies chest pain and palpitations. <Nury Carias PA-C - Last Filed: 09/25/21 15:19> Review of Systems Review of Systems: Twelve systems were reviewed. No fever, chills, or sweats. Last month she had swelling and redness of the face and she was prescribed a Medrol Dosepak which took care of the symptoms. No recent cold or flu symptoms. The last for 5 months she has noticed lower extremity edema that does not completely resolve with sleep but is somewhat improved in the mornings upon waking. She denies calf pain and tenderness. No history of venous thromboembolism. No exertional chest pain or shortness of breath. She has had bilateral carpal tunnel surgery but unfortunately continues to have mild paresthesias of the 1st 3 fingers of both hands, right hand greater than left. As documented, all other systems were reviewed and are negative. <Nury Carias PA-C - Last Filed: 09/25/21 15:19> [facility] Past Medical History Medical History: Medical History (Updated 09/27/21 @ 16:42 by Janett Hyman APRN) Arthritis Coronary artery disease COVID-19 Diverticulitis Diverticulosis Gastroesophageal reflux disease Hiatal hernia History of blood transfusion Hyperlipidemia Hypertension Post-menopausal Renal cell carcinoma Possible right renal cell carcinoma which has been followed conservatively since 11/2014. Most recent scan as of September 2021 showed a stable lesion and she was told that perhaps it is a benign cyst. No plans for surgical intervention at this time. Seborrheic keratoses Shingles Umbilical hernia <Nury Carias PA-C - Last Filed: 09/25/21 15:19> Surgical History Surgical History: Surgical History (Updated 09/27/21 @ 16:39 by Janett Hyman APRN) History of bladder surgery History of cardiac catheterization PTCA/stent to mid LAD in 11/2014. PTCA/stent to mid circumflex in 12/2019. History of carpal tunnel release History of cataract removal with insertion of prosthetic lens History of cholecystectomy History of colonoscopy with polypectomy History of coronary artery stent placement History of dilation and curettage
--- NOTE | 2021-09-25 13:20 | ECHO_ITS ---
Patient Info Name: Debbie Miller Age: 86 years : 1935 Gender: Female Ht: 59 in Wt: 163 lbs BSA: 1.79 m2 HR: 83 bpm BP: 179 / 96 mmHg Heart Rhythm: Sinus Rhythm Technical Quality: Good Exam Date: 09/25/2021 4:13 PM Exam Location: [facility] Exam Room: [facility] Patient Status: Outpatient Admit Date: 09/25/2021 Staff Ordering Physician: Nury Carias PA-C Flying [employer] Instructor: Ingrid Alejo RDCS Attending Provider: Zayda Burton MD Referring Physician: Jv CALVILLO; Exam Type: CA echo doppler color flow Study Info Indications - cad vertigo htn hdl ptca stent Complete two-dimensional, color flow and Doppler transthoracic echocardiogram is performed. Summary 1. Complete two-dimensional, color flow and Doppler transthoracic echocardiogram is performed. 2. Left ventricular chamber dimension is normal. 3. Left ventricular systolic function is normal, estimated at 60-65%. 4. No ischemic wall motion abnormalities were identified. 5. Left atrial chamber dimension is mildly enlarged. 6. There is mild aortic valve sclerosis. 7. There is trace mitral valve regurgitation. Left Ventricle Left ventricular chamber dimension is normal. Left ventricular systolic function is normal, estimated at 60-65%. The left ventricular diastolic function is grade I diastolic dysfunction. No ischemic wall motion abnormalities were identified. Right Ventricle Right ventricular chamber dimension is normal. Left Atria Left atrial chamber dimension is mildly enlarged. Right Atria Right atrial chamber dimension is normal. Aortic Valve The aortic valve is trileaflet. There is mild aortic valve sclerosis. Pulmonic Valve The pulmonic valve is normal. Mitral Valve The mitral valve has normal leaflets. There is trace mitral valve regurgitation. Tricuspid Valve The tricuspid valve leaflets are normal. Pericardium/Pleural The pericardium appears normal. Aorta The aortic root size at the sinus of Valsalva is normal. Left Ventricular Outflow Tract Name Value Normal LVOT 2D LVOT Diameter 2.0 cm LVOT Doppler LVOT Peak Gradient 5 mmHg LVOT Mean Gradient 3 mmHg LVOT VTI 26 cm LVOT VTI/AV VTI Ratio 0.7 LVOT Stroke Volume 79 ml LVOT CO 13.9 l/min LVOT CI 7.8 l/min/m2 Pulmonic Valve Name Value Normal PV Doppler PV Peak Gradient 4 mmHg Mitral Valve Name Value Normal MV Doppler
--- NOTE | 2021-09-25 14:31 | ADMGEN ---
This patient, Debbie Miller, was admitted to 2 Medical Room 251-01. Patient/family oriented to hospital policies and general routines including ID bracelet, bed and alarms, visiting hours, pain management, procedures, bathroom and other care routines, personal items, smoking policy, room service/diet, and visiting hours. Information on how to activate the Rapid Response Team has been discussed. Patient/Family are encouraged to report perceived risks to care and to ask questions if they do not understand what they are told or what they should do.
[2021-09-25] MEDS: diazePAM (*CRX) 5 MG TABLET 2.5 MG PO (15:49)
[2021-09-25 16:04] LABS: Troponin I < 0.012 ng/mL (0.000-0.034)
[2021-09-26] VITALS (17 sets, daily range): BP systolic 129–161; BP diastolic 64–82; PULSE 51–76; RESP 17–20; TEMP 36.2–36.4; O2SAT 96–99
[2021-09-26 05:01] LABS: Cholesterol 190 mg/dL (0-200); HDL Direct 52 mg/dL; Triglycerides 126 mg/dL (<150)
[2021-09-26 05:12] LABS: LDL Cholesterol Direct 83 mg/dL
--- NOTE | 2021-09-26 08:45 | PM.IMPN ---
Progress Note: A&P Assessment and Plan (1) Vertigo: Code(s): R42 - Dizziness and giddiness Status: Acute Assessment and Plan: She has had intermittent episodes of dizziness/vertigo since last Wednesday and brain CT today shows no acute findings. -CT head and Brain MRI negative. -Continue dual anti-platelet therapy and moderate intensity statin. -Continue fall precautions. -Echocardiogram pending. -Monitor telemetry. She is noted to have frequent PACs. Consider event monitor at discharge. -PT consulted for vestibular therapy. 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 -Maximize medical therapy. continue dual anti-platelet therapy and statin. -No focal neuro deficits. (3) Hypertension: Code(s): I10 - Essential (primary) hypertension Status: Acute Assessment and Plan: Blood pressures elevated on admission and reportedly at home. -Imaging negative for stroke. -continue with lisinopril and metoprolol. (4) Hyperlipidemia: Qualifiers: Hyperlipidemia type: unspecified Qualified Code(s): E78.5 - Hyperlipidemia, unspecified Code(s): E78.5 - Hyperlipidemia, unspecified Status: Chronic Assessment and Plan: Continue rosuvastatin- she reports taking 5 mg every other day due to muscle cramps, however, she adjusted this herself. Given severe stenosis of the right P2 posterior cerebral artery, consider increasing to 10 mg daily. Goal LDL<70. LFTs within normal limits. (5) Coronary artery disease: Code(s): I25.10 - Atherosclerotic heart disease of [place] coronary artery without angina pectoris Status: Chronic Assessment and Plan: -Continue statin, beta-bryon, and dual anti-platelet therapy. Subjective Date/time seen: 09/26/21 08:45 Patient is an 86-year-old female with coronary artery disease, hypertension, and hyperlipidemia who presented to the ED from home for evaluation of dizziness. CTA head and neck was concerning for severe stenosis in P2. Review of Systems Review of Systems: All systems reviewed & are unremarkable except as noted in HPI and below Exam Narrative: General: Well-developed female sitting up in the chair. No acute distress. HEENT: Normocephalic, atraumatic. PERRL, EOMI. No nystagmus. Sclerae anicteric. Oral mucosa moist. Oropharynx clear. Neck: Supple. No carotid bruits. Respiratory: Respirations regular and unlabored. Lungs are clear to auscultation bilaterally. No wheezing, rhonchi or rales. Cardiovascular: Regular rate and rhythm with S1-S2. No murmurs, gallops, and rubs. Gastrointestinal: Abdomen is soft, nontender, and nondistended with positive bowel sounds. Skin: Warm and dry. Widespread seborrheic keratoses on the trunk. Extremities: No cyanosis or clubbing. Trace lower extremity edema bilaterally. Radial and pedal pulses intact. Neurological: Alert and oriented x4 Cranial nerves 2-12 are intact. Speech is clear and appropriately. No facial asymmetry. No pronator drift. Normal [id number], rapid alternating movements, and heel to bajwa. No visual deficits. Sensation is intact. Psychiatric: Pleasant and cooperative with normal mood and affect. Judgment and insight intact. Objective Data Vital Signs Vital Signs: Vital Signs - 24 hr 09/25/21 08:50 09/25/21 09:00 09/25/21 09:29 Temperature Pulse Rate 60 59 L 58 L Respiratory Rate 16 17 12 Blood Pressure Pulse Oximetry 100 99 100 Oxygen Delivery 09/25/21 09:30 09/25/21 09:31 09/25/21 09:45 Temperature Pulse Rate 60 57 L 56 L Respiratory Rate 18 15 12 Blood Pressure 186/73 H Pulse Oximetry 98 98 99 Oxygen Delivery 0
[2021-09-26] MEDS: CLOPIDOGREL BISULFATE 75 MG TABLET PO (08:58)
[2021-09-26] MEDS: METOPROLOL SUCCINATE EXT REL 12.5 MG TABCR PO (08:58)
[2021-09-26] MEDS: ASPIRIN 81 MG CHEWABLE TABLET PO (08:58)
[2021-09-26] MEDS: METOPROLOL SUCCINATE EXT REL 25 MG TABCR PO (08:59)
[2021-09-26] MEDS: PANTOPRAZOLE 40 MG TABLET PO (08:59)
[2021-09-26] MEDS: CHOLECALCIFEROL 1,000 UNITS TABLET 2000 UNITS PO (08:59)
[2021-09-26] MEDS: lisinopriL 20 MG TABLET 40 MG PO (08:59)
[2021-09-26] MEDS: diazePAM (*CRX) 5 MG TABLET 2.5 MG PO ×2 (09:13→20:03)
[2021-09-26] MEDS: ROSUVASTATIN 5 MG TABLET PO (19:57)
[2021-09-27] VITALS: PULSE 56
[2021-09-27 03:55] VITALS: BP 150/73; PULSE 53; RESP 17; TEMP 36.4; O2SAT 97
[2021-09-27 04:00] VITALS: PULSE 84
[2021-09-27 08:00] VITALS: BP 157/62; PULSE 56
[2021-09-27] MEDS: PANTOPRAZOLE 40 MG TABLET PO (08:43)
[2021-09-27] MEDS: CHOLECALCIFEROL 1,000 UNITS TABLET 2000 UNITS PO (08:43)
[2021-09-27] MEDS: ASPIRIN 81 MG CHEWABLE TABLET PO (08:43)
[2021-09-27] MEDS: CLOPIDOGREL BISULFATE 75 MG TABLET PO (08:43)
[2021-09-27] MEDS: lisinopriL 20 MG TABLET 40 MG PO (08:43)
[2021-09-27] MEDS: METOPROLOL SUCCINATE EXT REL 25 MG TABCR PO (08:44)
[2021-09-27] MEDS: amLODIPine BESYLATE 5 MG TABLET PO (08:45)
[2021-09-27 08:48] VITALS: BP 156/74; BP 156/78
[2021-09-27 12:00] VITALS: PULSE 57
--- NOTE | 2021-09-27 12:11 | PM.DS ---
DS: Admitting Diagnosis Discharge Date 09/27/2021 1224 Admitting Diagnosis Dizziness DS: Discharge Diagnosis Discharge Diagnosis (1) Dizziness: Code(s): R42 - Dizziness and giddiness Status: Acute (2) Bradycardia, unspecified: Code(s): R00.1 - Bradycardia, unspecified Status: Acute (3) Atherosclerosis of arteries: Code(s): I70.90 - Unspecified atherosclerosis Status: Chronic (4) Abnormal computed tomography angiography of head: Code(s): R93.0 - Abnormal findings on diagnostic imaging of skull and head, not elsewhere classified Status: Acute (5) Hypertension: Code(s): I10 - Essential (primary) hypertension Status: Chronic DS: Summary Hospital Course Hospital Course: Debbie Miller is an 86-year-old female with coronary artery disease, hypertension, and hyperlipidemia who presented to the ED via private vehicle from home for evaluation of dizziness. She reports intermittent dizzy spells since last Wednesday which seemed to be precipitated by changes in position, for example looking upwards, turning over, or bending over. Symptoms reoccurred while bending over, trimming nichole on her deck on the day of admission. Her dizziness seemed more vertiginous and she had intermittent nausea with the symptoms. The dizziness improved with rest and lorazepam given in the emergency department. The meclizine actually made the dizziness worse. Additionally, her blood pressures have been noted to be high and with further questioning she admits that they have been running in the 160s to 170s at home over the last month or so, however after about 5 minutes of rest they do improved to the 140s systolic. NIH stroke scale on arrival to the ER was [address] showed no acute findings. A subsequent CTA of the head and neck showed a focal area of severe stenosis in the P2 cerebral artery. ED physician spoke with the neuro stroke team at [facility] and they did not recommend tPA and suggested that the CTA finding may be incidental as she has no other symptoms to suggest posterior CVA. She denied headache, auditory and visual changes, focal weakness, paresthesias, facial droop, dysarthria, and dysphagia. She also denies chest pain and palpitations. The patient was referred for observation. MRI brain was obtained and did not show areas of ischemia, tubor or hemorrhage. Orthostatic vitals were negative. Echocardiogram did not show wall motion abnormality or valve disorder. PT was consulted for vestibular therapy, however, the patient did not feel this was beneficial. She was monitored on telemetry and was noted to be bradycardic, HR 50s, sinus ta with occasional to frequent PACs. Event monitor outpatient was ordered for further monitoring and she was instructed to contact Cardiology office on Wednesday for arrangements. Her blood pressure was also noted to be elevated during her hospital stay SBP 140-170s. Given her bradycardia, metoprolol dose was not increased; norvasc 5 mg daily was added. Lipid panel showed triglycerides 166, HDL 53 and LDL 83. Troponin was not elevated and no ischemia or significant EKG changes were noted. She reportedly was only taking her crestor 5 mg every other day due to concerns for muscle cramps. She was instructed on diet, physical activity and medication changes. Additionally, she was instructed to take and record blood pressure and pulse once daily and take her readings to follow up appointments. She was instructed to hold her metoprolol medication if her HR<55 bpm. Her dizziness improved during her hospital stay and she was ambulating independently at the time of discharge. She was instructed on s/s of stroke and when to seek further care. She was discharged home in stable condition. Status at Discharge Cognitive/behavioral status at discharge: Awake, alert and oriented x4, pleasant and cooperative. Functional status at discharge: independent ambulation Overall status at discharge: avi
== END 2021-09-27 13:20 | disposition home or self-care (01) ==
LOC: ANHED 09:23 → ANH2MED 13:27
PROVIDERS: Physician Assistant; Admitting Provider Family Medicine; Emergency Provider Emergency Medicine; PCP Internal Medicine; Visit Provider Nurse Practitioner Family
DX: R42 Dizziness and giddiness (principal); R00.1 Bradycardia, unspecified; R93.0 Abnormal findings on diagnostic imaging of skull and head, not elsewhere classified; I70.90 Unspecified atherosclerosis; I10 Essential (primary) hypertension; I25.10 Atherosclerotic heart disease of native coronary artery without angina pectoris; Z86.16 Personal history of COVID-19; K21.9 Gastro-esophageal reflux disease without esophagitis; E78.5 Hyperlipidemia, unspecified
CPT/HCPCS: 36415; 70450; 70496; 70498; 70551; 71046; 80053; 80061; 84484; 85025; 85610; 85730; 93005; 93306; 96361; 96374; 96375; 97161; 99285; A9270; G0378; J2060; J2405; J7030; Q9967

== ENCOUNTER 2022-01-06 14:52 | Outpatient (CLI) | payer OTHER, SELFPAY ==
--- NOTE | ~2022-01-06 | MM_ITS ---
EXAMINATION: MM screening marky BI w steven HISTORY: Screening mammogram TECHNIQUE: Craniocaudal and mediolateral oblique 3-D tomosynthesis images were obtained and synthetic 2-D images were generated. CAD analysis was submitted and interpreted. COMPARISON: 02/01/2020, 07/21/2018, 07/01/2016 BREAST PARENCHYMAL COMPOSITION: There are scattered areas of fibroglandular density. FINDINGS: Scattered benign-appearing calcifications are present. No suspicious mass, calcification, o r architectural distortion are identified in either breast to suggest malignancy. There has been no s uspicious interval change. IMPRESSION: 1. No mammographic evidence of malignancy. 2. Recommend routine screening mammography in one year. BI-RADS Category 2: Benign finding(s). Reviewed, dictated and finalized at location A.
--- NOTE | ~2022-01-06 | DEXA_ITS ---
Bone Density Report Name: DANTE DA SILVA Age: 86 Sex: Female Ethnicity: White Date of : 1935 Indication: osteopenia; height loss; postmenopausal Referring Provider: YUMIKO LIM Study: Bone densitometry was performed. Exam Date: January 06, 2022 Accession number: [id number] Bone Density: Region BMD T-score Z-score Classification AP Spine(L1, L2, L3) 1.002 -0.1 2.6 Normal Femoral Neck (Left) 0.693 -1.4 1.1 Osteopenia Total Hip (Left) 0.809 -1.1 1.2 Osteopenia Femoral Neck (Right) 0.665 -1.7 0.9 Osteopenia Total Hip (Right) 0.815 -1.0 1.3 Normal Total Hip Mean 0.812 -1.1 1.3 Osteopenia World Health Organization criteria for BMD impression classify patients as: Normal (T-score at or above -1.0), Osteopenia (T-score between -1.0 and -2.5), or Osteoporosis (T-score at or below -2.5). 10-year Fracture Risk(1): Major Osteoporotic Fracture 12% Hip Fracture 3.3% Reported Risk Factors: [place] (), Neck BMD=0.665, BMI=34.0 (1) FRAX(R) Version 3.08. Fracture probability calculated for an untreated patient. Fracture probability may be lower if the patient has received treatment. Previous Exams: Region Exam Age BMD T-score BMD Change BMD Change Date g/cm2 vs Baseline vs Previous AP Spine (L1-L3) 01/06/2022 86 1.002 -0.1 0.014 (1.4%) 0.040 (4.1%)* 07/11/2018 83 0.962 -0.5 -0.026 (-2.6%) -0.026 (-2.6%) 07/01/2016 81 0.987 -0.3 Total Hip(Left) 01/06/2022 86 0.809 -1.1 -0.043 (-5.0%) 0.028 (3.6%)* 07/11/2018 83 0.781 -1.3 -0.071 (-8.3%) -0.071 (-8.3%) 07/01/2016 81 0.851 -0.7 Total Hip(Right) 01/06/2022 86 0.815 -1.0 -0.029 (-3.4%) -0.007 (-0.9%) 07/11/2018 83 0.823 -1.0 -0.022 (-2.6%) -0.022 (-2.6%) 07/01/2016 81 0.844 -0.8 *Denotes significance at 95% confidence level, LSC for AP Spine = 0.022 g/cm2, LSC for Total Hip = 0.027 g/cm2 Clinical Information Provided by Patient: Has used the following medications: Vitamin D Patient maximum height was 62 Menopause Age: 52 Drinks caffeinated beverages Onset of menses at age 12 Number of children 6 Impression: The patient has low bone mass, based on the Right Femoral Neck T-score. The patient has an estimated ten-year risk of hip fracture of 3.3% and an estimated ten-year risk of major fracture of 12%, based on the WHO FRAX algorithm. No significant bone loss was observed. Discussion: BONE DENSITY IS LOW AT ONE O
== END 2022-01-06 14:53 | disposition home or self-care (01) ==
PROVIDERS: PCP Internal Medicine; Visit Provider Nurse Practitioner
DX: Z12.31 Encounter for screening mammogram for malignant neoplasm of breast (principal); Z78.0 Asymptomatic menopausal state; M85.852 Other specified disorders of bone density and structure, left thigh; M85.851 Other specified disorders of bone density and structure, right thigh
CPT/HCPCS: 77063; 77067; 77080

== ENCOUNTER 2022-08-11 14:14 | Outpatient (CLI) | payer OTHER, SELFPAY ==
--- NOTE | ~2022-08-11 | XR_ITS ---
EXAM: XR ankle RT 2V DATE: 08/11/2022 14:28 HISTORY: Pain in right ankle and joints of right foot x mos; no inj . COMPARISON: None available. FINDINGS: Normal mineralization. No fracture or dislocation. No lytic or blastic lesion. Mild degene rative changes in the tibiotalar joint and multiple midfoot joints. Moderate Achilles and plantar ent hesopathy. Prominent os trigonum. No erosion or periosteal change. Subcutaneous edema and soft tissue swelling about the ankle. IMPRESSION: No acute osseous finding in the right ankle. Reviewed, dictated and finalized at location K.
== END 2022-08-11 14:15 ==
PROVIDERS: PCP Nurse Practitioner; Visit Provider Nurse Practitioner
DX: M25.571 Pain in right ankle and joints of right foot (principal)
CPT/HCPCS: 73600

== ENCOUNTER 2023-02-23 10:05 | Emergency (ER) | payer OTHER, SELFPAY ==
[2023-02-23] VITALS (33 sets, daily range): BP systolic 137–184; BP diastolic 69–101; PULSE 57–69; RESP 12–23; TEMP 36.2; O2SAT 97–100
--- NOTE | ~2023-02-23 | CT_ITS ---
EXAMINATION: CT abdomen pelvis w con DATE: 02/23/2023 11:43 INDICATION: Lower gastrointestinal bleed TECHNIQUE: Computed tomography (CT) of the abdomen and pelvis was performed with 100 mL Omnipaque-350 intravenous contrast. Automated exposure control and iterative reconstruction technique were employe d. The dose-length product was 684.61 mGy-cm. COMPARISON: None FINDINGS: Minimal atelectasis at the right middle lobe and lingula. Heart size is normal. No pericardial or ple ural effusion. There are few low-attenuation hepatic cysts measuring up to 2.2 cm. Cholecystectomy cl ips the gallbladder fossa. Spleen, pancreas, bilateral adrenal glands and left kidney are normal. A s hort exophytic 2.7 x 2.1 cm heterogeneously enhancing mass arising from the upper pole of the left ki dney consistent with renal cell carcinoma. Normal appendix. No bowel obstruction. There is prominent colonic diverticulosis with a sigmoid predominance. There is no adjacent inflammatory change to sugg est diverticulitis. There is focal increased luminal density suspicious for active contrast extravasa tion at the proximal sigmoid colon which could represent the site of reported lower gastrointestinal bleed. Bladder is normal. The uterus is not identified and has likely been surgically resected. No fr ee intraperitoneal gas or fluid. No pathologically enlarged abdominal or pelvic lymphadenopathy. No re spondylosis at L5-S1 with moderate spondylosis of the more cephalad lumbar and lower thoracic spin e. IMPRESSION: 1. Extensive diverticulosis with focal increased intraluminal density at the proximal sigmoid colon s uspicious for active contrast extravasation related to a reported lower gastrointestinal bleed. 2. Slowly growing 2.7 cm right adrenal enhancing mass consistent with renal cell carcinoma which was noted to have measured 1.8 x 1.5 cm on abdominal MRI dated 11/18/2017. Reviewed, dictated and finalized at location A. TINNER IMPRESSION: 1. Extensive diverticulosis with focal increased intraluminal density at the pr oximal sigmoid colon suspicious for active contrast extravasation related to a reported lower gastrointestinal bleed. 2. Slowly growing 2.7 cm right adrenal enhancing mass consistent with renal chad l carcinoma which was noted to have measured 1.8 x 1.5 cm on abdominal MRI date d 11/18/2017.
--- NOTE | 2023-02-23 10:27 | ED.GIBLEED ---
HPI - GI Bleed General Chief complaint: GI Bleed <ANGEL Aleman Last Filed: 02/23/23 18:44> Stated complaint: RECTAL BLEEDING SINCE 914 <ANGEL lAeman Last Filed: 02/23/23 18:44> Time Seen by Provider: 02/23/23 10:19 <ANGEL Aleman Last Filed: 02/23/23 18:44> Source: patient <ANGEL Aleman Last Filed: 02/23/23 18:44> Mode of arrival: ambulatory <ANGEL Aleman Last Filed: 02/23/23 18:44> Limitations: no limitations <ANGEL Aleman Last Filed: 02/23/23 18:44> History of Present Illness HPI Narrative: Patient is an 87 y/o female who presents to the ED with c/o rectal bleeding. Patient reports she developed rectal bleeding this morning. She thought she had had diarrhea on herself, but noted there was a large amount of bright red blood mixed in with the stool when she cleaned herself up. She states she had a normal bowel movement earlier this morning prior to the onset of the bleeding. She denies pain with bowel movements. Denies abdominal pain. She is starting to feel slightly nauseous and lightheaded. Denies vomiting, fevers, hx of similar episodes. She does think she has had hemorrhoids before but denies previous bleeding. She is on Plavix and ASA. <ANGEL Aleman Last Filed: 02/23/23 18:44> Related Data Home medications: Home Medications Medication Instructions Recorded Confirmed clopidogrel 75 mg tablet 75 mg PO DAILY 02/21/19 02/22/23 cholecalciferol (vitamin D3) 50 2,000 unit PO DAILY 03/02/19 02/22/23 mcg (2,000 unit) tablet (Vitamin D3) metoprolol succinate 25 mg 25 mg PO DAILY 09/03/22 02/22/23 tablet,extended release 24 hr nitroglycerin 0.4 mg sublingual 0.4 mg sublingual Q5M PRN 09/03/22 02/22/23 tablet <Dilcia Gallardo PA-C - Last Filed: 02/23/23 18:44> Allergies/Adverse reactions: Allergies Allergy/AdvReac Type Severity Reaction Status Date / Time No Known Allergies Allergy Verified 02/22/23 08:29 <Dilcia Gallardo PA-C - Last Filed: 02/23/23 18:44> Review of Systems Review of Systems: CONSTITUTIONAL: Denies fever, chills, or sweats. CARDIOVASCULAR: Denies chest pain, palpitations, or edema. RESPIRATORY: Denies cough or dyspnea. GASTROINTESTINAL: See HPI. GENITOURINARY: Denies dysuria or hematuria. SKIN: Denies rash or itching. MUSCULOSKELETAL: Denies back pain, joint pain, or myalgia. <Dilcia Gallardo PA-C - Last Filed: 02/23/23 18:44> All systems reviewed & are unremarkable except as noted in HPI and below <Dilcia Gallardo PA-C - Last Filed: 02/23/23 18:44> [facility] Past Medical History Medical History: Medical History Arthritis Coronary artery disease COVID-19 Diverticulitis Diverticulosis Gastroesophageal reflux disease Hiatal hernia History of blood transfusion Hyperlipidemia Hypertension Post-menopausal Renal cell carcinoma Possible right renal cell carcinoma which has been followed conservatively since 11/2014. Most recent scan as of September 2021 showed a stable lesion and she was told that perhaps it is a benign cyst. No plans for surgical intervention at this time. Seborrheic keratoses Shingles Umbilical hernia <Dilcia Gallardo PA-C - Last Filed: 02/23/23 18:44> Surgical History Surgical History: Surgical History History of bladder surgery History of cardiac catheterization PTCA/stent to mid LAD in 11/2014. PTCA/stent to mid circumflex in 12/2019. History of carpal tunnel release (~05/28/17) LT Hand History of cataract removal with insertion of prosthetic lens History of cholecystectomy History of colonoscopy with polypectomy History of coronary artery stent placement History of dilation and curettage History of exploratory laparotomy (03/2019) Adhes
[2023-02-23 10:43] LABS: Basophils Absolute Auto 0.1 K/mm3 (0.0-0.1); Basophils Percent Auto 0.7 % (0.2-1.2); Eosinophils Absolute Auto 0.1 K/mm3 (0-0.3); Eosinophils Percent Auto 1.9 % (0-4.4); Hematocrit 43.3 % (37.0-47.0); Immature Granulocyte Absolute 0.02 K/mm3 (0.00-0.031); Immature Granulocyte Percent A 0.3 % (0-0.5); Lymphocytes Absolute Auto 2.14 K/mm3 (0.9-3.2); Mean Corpuscular HGB Conc 32.3 g/dl (32-36); Mean Corpuscular Hemoglobin 30.8 pg (26-34); Mean Corpuscular Volume 95.2 fl (80-100); Mean Platelet Volume 11.6 fl (7.4-10.4); Monocytes Absolute Auto 0.5 K/mm3 (0.1-0.6); Monocytes Percent Auto 7.4 % (2.6-8.5); Neutrophils Absolute Auto 4.1 K/mm3 (1.3-6.7); Neutrophils Percent Auto 58.7 % (45.5-73.1); Platelet Count Result 245 k/mm3 (150-375); Red Blood Count 4.55 M/mm3 (4.2-5.4); Red Cell Distribution Width 14.1 % (11.5-14.5); White Blood Count 6.9 K/mm3 (4.5-10.0)
[2023-02-23 10:51] LABS: Alanine Aminotransferase 18 U/L (6-35); Albumin Level 4.2 g/dL (3.5-5.1); Alkaline Phosphatase 58 U/L (38-126); Anion Gap 8 mmol/L (8-16); Aspartate Amino Transferase 29 U/L (14-36); Bilirubin,Total 0.8 mg/dL (0.2-1.3); Blood Urea Nitrogen 15 mg/dL (7-17); Calcium 9.1 mg/dL (8.4-10.2); Carbon Dioxide 26 mmol/L (22-30); Chloride 107 mmol/L (98-107); Estimated Glomerular Filt Rate > 60; Glucose 109 mg/dL (65-110); Potassium 4.3 mmol/L (3.4-5.0); Sodium 141 mmol/L (137-145)
[2023-02-23 10:53] LABS: Partial Thromboplastin Time 27.9 SECONDS (22.3-36.8)
[2023-02-23 10:56] LABS: Prothrombin Time 13.6 Seconds (11.1-14.7)
[2023-02-23] MEDS: SODIUM CHLORIDE 0.9% IV 1,000 ML 999 ML IV CONT (11:09)
--- NOTE | 2023-02-23 11:11 | PC.NURSE ---
pt would like to hold off on taking zofran at this time.
--- NOTE | 2023-02-23 11:51 | PC.NURSE ---
pt to CT @1130 and back @1146. pt unable to provide urine sample at this time.
[2023-02-23] MEDS: PANTOPRAZOLE SODIUM IV 40 MG VIAL IV PUSH (12:26)
[2023-02-23 13:02] LABS: Hematocrit 41.3 % (37.0-47.0); Hemoglobin 13.3 g/dL (12.0-15.0)
[2023-02-23 13:21] LABS: Appearance Urine Clear (Clear); Bilirubin Urine Negative (Negative); Blood Urine Negative (Negative); Color Urine Yellow (Yellow); Glucose Urine UA Negative (Negative); Ketones Urine Negative (Negative); Leukocyte Esterase Ur Negative LEU/UL (Negative); Nitrate Urine Negative (Negative); Protein Urine Negative (Negative); Specific Grav Ur 1.023 (1.001-1.035); Urobilinogen Urine 0.2 mg/dL (<2.0)
[2023-02-23 13:40] LABS: Add Urine Microscopic? NO
--- NOTE | 2023-02-23 13:49 | PC.NURSE ---
transfer promotions team leader Kerry called @[phone] and was provided an update on pt condition. no further orders at this time.
--- NOTE | 2023-02-23 15:38 | PC.NURSE ---
called [facility] @5729 to give report. RN asked me to call back in 20min. called back @1500 and gave report to FRANCIS Herrera. all questions answered.
== END 2023-02-23 17:09 | disposition short-term general hospital (02) ==
PROVIDERS: Emergency Medicine; Emergency Provider Physician Assistant; PCP Family Medicine
DX: K57.31 Diverticulosis of large intestine without perforation or abscess with bleeding (principal); Z79.01 Long term (current) use of anticoagulants; M19.90 Unspecified osteoarthritis, unspecified site; I25.10 Atherosclerotic heart disease of native coronary artery without angina pectoris; K21.9 Gastro-esophageal reflux disease without esophagitis; I10 Essential (primary) hypertension
CPT/HCPCS: 36415; 74177; 80053; 81003; 85014; 85018; 85025; 85610; 85730; 86850; 86900; 86901; 96361; 96374; 99285; C9113; J2405; J7030; Q9967

== ENCOUNTER 2023-04-06 07:00 | Outpatient (NON) | payer MEDICARE, SELFPAY | END 2023-04-06 07:01 | disposition home or self-care (01) | PROVIDERS: PCP Family Medicine; Visit Provider Nurse Practitioner | DX: C44.41 Basal cell carcinoma of skin of scalp and neck (principal); L82.1 Other seborrheic keratosis | CPT/HCPCS: 88305 ==

== ENCOUNTER 2023-04-20 07:00 | Outpatient (NON) | payer MEDICARE, SELFPAY | END 2023-04-20 07:01 | disposition home or self-care (01) | LOC: ANHLAB 04-21 12:09 | PROVIDERS: PCP Internal Medicine; Visit Provider Nurse Practitioner | DX: C44.41 Basal cell carcinoma of skin of scalp and neck (principal) | CPT/HCPCS: 88305 ==

== ENCOUNTER 2023-04-27 08:23 | Outpatient (CLI) | payer MEDICARE, SELFPAY ==
--- NOTE | ~2023-04-27 | XR_ITS ---
EXAMINATION: XR UGI w small bowel DATE: 04/27/2023 11:15 INDICATION: Unspecified abdominal pain. Gastroesophageal reflux. TECHNIQUE: The patient drank thick barium, gas-producing crystals, and thin barium. Conventional supi ne abdomen radiographs and fluoroscopic spot radiographs of the esophagus, stomach, and proximal smal l bowel were obtained. Additional overhead radiographs were obtained during the transit through the s mall bowel. Spot fluoroscopic images of the small bowel were obtained upon contrast reaching the cec um. Fluoroscopy exposure time was minutes. COMPARISON: None. FINDINGS: The esophagus is normal without mass or stricture. Esophageal motility is normal. There is no hiatal hernia. There was no gastroesophageal reflux with provocative maneuvers. The stomach and proximal sma ll bowel are normal. Transit time from the stomach to proximal colon was approximately 60 minutes. There is normal caliber and mucosal fold pattern throughout the small bowel. Terminal ileum is normal. No tethering or abn ormal mass effect observed upon the small bowel with real-time fluoroscopy. IMPRESSION: 1. Normal upper GI and small bowel follow-through study. Reviewed, dictated and finalized at location A. FIXER APPRENTICE
== END 2023-04-27 08:24 | disposition home or self-care (01) ==
PROVIDERS: PCP Internal Medicine; Visit Provider Internal Medicine
DX: R10.13 Epigastric pain (principal); K21.9 Gastro-esophageal reflux disease without esophagitis
CPT/HCPCS: 74240; 74248

== ENCOUNTER 2023-05-31 08:09 | Outpatient (CLI) | payer MEDICARE, SELFPAY ==
--- NOTE | 2023-05-31 13:35 | WPDPFTINT ---
PFT Procedure Performed PFT Procedure Performed Spirometry with Pre/Post Bronchodilator Plethysmography (Lung Vol) Diffusing Cap (DLCO) Flow Vol Loop PFT Interpretation This is a pulmonary function test with pre and post-bronchodilator spirometry, plethysmography and diffusing capacity. The test was performed and results interpreted in accordance with the 2019 and 2005 ATS/ERS Task Force guidelines respectively using the Global Lung Function Initiative-2012 reference equations. Patient demonstrated good effort and cooperation. Reproducibility criteria were met. The quality of the pre bronchodilator spirometry maneuver was Grade A and post bronchodilator spirometry maneuver was Grade A. Findings: Spirometry:The contour the inspiratory and expiratory flow tracing are normal. The pre bronchodilator FVC is 2.25 L, 132% predicted. The pre bronchodilator FEV1 is 1.66 L, 129% predicted. The pre bronchodilator FEV1: FVC ratio is 74%. The post bronchodilator FVC is 2.23 L, representing 1% decrease. The post bronchodilator FEV1 is 1.70 L, representing a 2% increase. The post bronchodilator FEV1: FVC ratio 76%. Plethysmography: The total lung capacity is 3.67 L, 94% predicted. The functional residual capacity is 1.57 L, 63% predicted. The residual volume is 1.39 L, 63% predicted. Diffusing capacity: The diffusing capacity unadjusted for hemoglobin and carboxyhemoglobin is 12.8, 76% predicted. The diffusing capacity adjusted for alveolar volume is 3.73, 89% predicted. Impression: The spirometry is normal without evidence of an obstructive abnormality. There is no significant improvement after inhaling a single dose of albuterol. The total lung capacity and functional residual capacity are normal with a decreased residual volume. This is an abnormal but nonspecific lung volume pattern. The diffusing capacity is normal. There are no prior studies for comparison
== END 2023-05-31 08:10 | disposition home or self-care (01) ==
PROVIDERS: PCP Internal Medicine; Visit Provider Internal Medicine
DX: R06.02 Shortness of breath (principal); R06.09 Other forms of dyspnea
CPT/HCPCS: 94060; 94726; 94729

== ENCOUNTER 2023-10-19 07:44 | Outpatient (CLI) | payer MEDICARE, SELFPAY ==
--- NOTE | ~2023-10-19 | CT_ITS ---
CT ANGIOGRAM NECK AND HEAD History: TIA. Technique: Axial noncontrast imaging of the brain was performed. Serial spiral axial images through t he head and neck were than obtained during arterial phase IV injection of 100 cc of Omnipaque 350. 3- D postprocessing and MIP images were then reconstructed on the remote workstation. Dose reduction amanda hnique was used on this scan by utilizing automated exposure control and iterative reconstruction amanda hnique. The dose-length product (DLP) was 1659.52 mGy-cm. COMPARISON: 09/25/2021 CTA neck findings: Bilateral vertebral arteries are patent. Bilateral common carotid, internal carot id, and external carotids are patent. No large vessel occlusion or stenosis. No aneurysm seen. The pr oximal right internal carotid artery demonstrates 0% stenosis relative to the normal distal artery leslie men diameter. The proximal left internal carotid artery demonstrates 0% stenosis relative to the norm al distal artery lumen diameter. CTA head findings: Distal vertebral arteries, basilar artery, and posterior cerebral arteries are pat ent. Distal internal carotid arteries, middle cerebral arteries, and anterior cerebral arteries are p atent. No large vessel occlusion. Stable focal high-grade stenosis at the right P2 segment of the pos terior cerebral artery. Axial noncontrast imaging of brain demonstrates no evidence for acute infarct, intracranial hemorrhag e, or mass lesion. There is mild general is atrophy. Crane-white differentiation preserved. No mass ef fect or midline shift. Paranasal sinuses and mastoid air cells are clear. Calvarium intact. Impression: Stable focal high-grade stenosis of the right posterior cerebral artery, as detailed above. No other significant abnormality evident. Reviewed, dictated and finalized at location M. Impression: Stable focal high-grade stenosis of the right posterior cerebral artery, as det shawna above. No other significant abnormality evident.
[2023-10-19 08:21] LABS: Estimated Glomerular Filt Rate 59
== END 2023-10-19 07:45 | disposition home or self-care (01) ==
PROVIDERS: PCP Internal Medicine; Visit Provider Student in an Organized Health Care Education/Training Program
DX: Z86.73 Personal history of transient ischemic attack (TIA), and cerebral infarction without residual deficits (principal)
CPT/HCPCS: 70496; 70498; Q9967

== ENCOUNTER 2023-10-28 07:51 | Outpatient (CLI) | payer MEDICARE, SELFPAY ==
--- NOTE | 2023-10-28 07:53 | ECHO_ITS ---
Patient Info Name: Debbie Miller Age: 88 years : 1935 Gender: Female Ht: 61 in Wt: 173 lbs BSA: 1.87 m2 HR: 60 bpm BP: 157 / 91 mmHg Heart Rhythm: Sinus Rhythm Technical Quality: Good Exam Date: 10/28/2023 8:00 AM Exam Location: Echo Lab Patient Status: Outpatient Admit Date: 10/28/2023 Staff Ordering Physician: Delmy Triplett MD Fishing Vessel Mate: Brigette Cornell RDCS Attending Provider: Delmy Triplett MD Exam Type: CA echo doppler w bubble study Study Info Indications Z86.73 - Personal history of transient ischemic attack (TIA), and cerebral infarction without residual deficits Complete two-dimensional, color flow and Doppler transthoracic echocardiogram is performed with agitated saline. Contrast/Agitated Saline Contrast/Ag. Saline: Agitated Saline Amount: 12.00 ml New IV Access: Dorsum of Hand and Right Site Condition: No extravasation, Site dressing applied and IV removed Summary 1. Left ventricular chamber dimension is normal. 2. Left ventricular systolic function is normal, estimated at 65-70%. 3. There is mild asymmetric septal increased left ventricular wall thickness. 4. The left ventricular diastolic function is grade I diastolic dysfunction. 5. Right ventricular systolic function is normal. 6. Left atrial chamber dimension is mildly enlarged. 7. 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 8. There is mild mitral valve regurgitation. 9. There is mild tricuspid valve regurgitation. Left Ventricle Left ventricular chamber dimension is normal. Left ventricular systolic function is normal, estimated at 65-70%. There is mild asymmetric septal increased left ventricular wall thickness. The left ventricular diastolic function is grade I diastolic dysfunction. Right Ventricle Right ventricular chamber dimension is normal. Right ventricular systolic function is normal. Left Atria Left atrial chamber dimension is mildly enlarged. Right Atria Right atrial chamber dimension is normal. 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 Aortic Valve The aortic valve is trileaflet. There is no aortic valve stenosis. There is trace aortic valve regurgitation. There is mild aortic valve calcification. Pulmonic Valve The pulmonic valve is not well visualized. There is trace pulmonic regurgitation. Mitral Valve There is mild mitral valve regurgitation. Tricuspid Valve There is mild tricuspid valve regurgitation. Pericardium/Pleural The pericardium appears epicardial fat pad. There is no pericardial effusion. Inferior Vena Cava Normal inferior vena cava with >50% collapse upon inspiration consistent with normal right atrial pressure, 3 mmHg. Aorta The aortic root size at the sinus of Valsalva is normal. Left Ventricular Outflow Tract Name Value Normal LVOT 2D LVOT Diameter 1.9 cm LVOT Doppler LVOT Peak Gradient 4 mmHg LVOT Mean Gradient 3 mmHg LVOT VTI 26 cm LVOT VTI/AV VTI Ratio 0.8
== END 2023-10-28 07:52 | disposition home or self-care (01) ==
LOC: ANHCARD 07:52
PROVIDERS: PCP Internal Medicine; Visit Provider Student in an Organized Health Care Education/Training Program
DX: I08.1 Rheumatic disorders of both mitral and tricuspid valves (principal); Z86.73 Personal history of transient ischemic attack (TIA), and cerebral infarction without residual deficits
CPT/HCPCS: 93306; 96375